=== PATIENT | female | born 1935 | race Two or more races ===

== ENCOUNTER 2021-08-06 18:35 | Inpatient (IN) | payer MEDICARE, OTHER ==
[~2021-08-06] VITALS: Ht 152.4 cm; Wt 74.8 kg
[2021-08-06 18:35] VITALS: BP 118/52
[2021-08-06 20:00] VITALS: BP 118/52
[2021-08-06] MEDS ORDERED: IPRATROPIUM/ALBUTEROL 0.5-3(2.5)MG/3ML NEB HHN PRN (20:45)
[2021-08-06] MEDS ORDERED: NON FORMULARY PATIENT HOME MED XX SCH (21:00)
[2021-08-06] MEDS: ATORVASTATIN CALCIUM 20MG TABLET PO SCH (22:24)
[2021-08-06] MEDS: CLOTRIMAZOLE/BETAMETHASONE 1/0.05% CREAM 15GM TOP SCH (23:39)
[2021-08-07 06:31] LABS: CHLORIDE 113 mEq/L (98-107)
[2021-08-07 06:32] LABS: BASOPHILS % 0.3 % (0.0-2.0); HEMATOCRIT. 29.1 % (36.0-48.0); HEMOGLOBIN. 9.7 g/dL (12.0-16.0); LYMPHOCYTES % 16.3 % (20.0-50.0); MEAN CORPUSCULAR HEMOGLOBIN 31.1 pg (28.0-32.0); MEAN CORPUSCULAR VOLUME 93.7 fL (81.0-99.0); MEAN PLATELET VOLUME 8.6 fl (7.4-10.4); MONOCYTES % 12.2 % (2.0-8.0); NEUTROPHILS % 67.2 % (40.0-76.0); PLATELET 162 x1000/uL (130-400); RED CELL DISTRIBUTION WIDTH 14.7 % (11.6-14.6)
[2021-08-07 06:40] LABS: LDL CHOLESTEROL 47 mg/dL (5-100)
[2021-08-07 06:41] LABS: HDL CHOLESTEROL 33 mg/dL (40-59)
[2021-08-07 08:00] VITALS: BP 99/50
[2021-08-07] MEDS: LOSARTAN POTASSIUM 50 MG TABLET PO SCH ×3 (09:00→17:00)
[2021-08-07] MEDS ORDERED: APIXABAN 5 MG TABLET PO SCH (09:00)
[2021-08-07] MEDS ORDERED: ASPIRIN 81MG TABLET PO SCH (09:00)
[2021-08-07] MEDS: LIDOCAINE 5% PATCH TOP SCH (10:25)
[2021-08-07] MEDS: DOXYCYCLINE HYCLATE 100MG CAPSULE PO SCH ×2 (10:25→18:45)
[2021-08-07] MEDS: FUROSEMIDE 40MG TABLET PO SCH (10:25)
[2021-08-07] MEDS: CLOTRIMAZOLE/BETAMETHASONE 1/0.05% CREAM 15GM TOP SCH ×2 (12:20→20:57)
[2021-08-07] MEDS: METHYLPREDNISOLONE 4MG TABLET PO SCH (12:20)
[2021-08-07] MEDS: APIXABAN 2.5 MG TABLET PO SCH (18:45)
[2021-08-07 20:00] VITALS: BP 99/60
[2021-08-07] MEDS: ATORVASTATIN CALCIUM 20MG TABLET PO SCH (20:57)
[2021-08-08 08:00] VITALS: BP 113/55
[2021-08-08] MEDS: DOXYCYCLINE HYCLATE 100MG CAPSULE PO SCH ×2 (09:06→17:28)
[2021-08-08] MEDS: APIXABAN 2.5 MG TABLET PO SCH ×2 (09:06→17:30)
[2021-08-08] MEDS: METHYLPREDNISOLONE 4MG TABLET PO SCH (09:06)
[2021-08-08] MEDS: FUROSEMIDE 40MG TABLET PO SCH (09:06)
[2021-08-08] MEDS: LOSARTAN POTASSIUM 50 MG TABLET PO SCH ×2 (09:07→17:00)
[2021-08-08] MEDS: LIDOCAINE 5% PATCH TOP SCH (09:07)
[2021-08-08] MEDS: TRAMADOL 50MG TABLET PO PRN ×2 (09:07→23:08)
[2021-08-08] MEDS: CLOTRIMAZOLE/BETAMETHASONE 1/0.05% CREAM 15GM TOP SCH ×2 (09:10→22:39)
[2021-08-08 11:49] LABS: CLARITY URINE TURBID (CLEAR); COLOR URINE DARK YELLOW (YELLOW); KETONES URINE NEGATIVE (NEGATIVE); LEUKOCYTE ESTERASE URINE 3+ (NEGATIVE); NITRITE URINE NEGATIVE (NEGATIVE); OCCULT BLOOD URINE 2+ (NEGATIVE); PROTEIN URINE 2+ (NEGATIVE); SPECIFIC GRAVITY URINE 1.011 (1.005-1.030)
[2021-08-08 13:01] LABS: BASOPHILS % 0.4 % (0.0-2.0); EOSINOPHILS % 2.8 % (0.0-5.0); HEMATOCRIT. 34.5 % (36.0-48.0); HEMOGLOBIN. 11.1 g/dL (12.0-16.0); LYMPHOCYTES % 10.5 % (20.0-50.0); MEAN CORPUSCULAR HEMOGLOBIN 30.3 pg (28.0-32.0); MEAN PLATELET VOLUME 8.4 fl (7.4-10.4); NEUTROPHILS % 77.3 % (40.0-76.0); PLATELET 248 x1000/uL (130-400); RED BLOOD CELL COUNT 3.67 mill/uL (4.2-5.4); RED CELL DISTRIBUTION WIDTH 14.8 % (11.6-14.6)
[2021-08-08 13:09] LABS: CHLORIDE 110 mEq/L (98-107)
[2021-08-08 13:18] LABS: CREATINE KINASE 45 IU/L (26-192)
[2021-08-08 13:19] LABS: TOTAL IRON BINDING CAPACITY 210 ug/dL (250-450)
[2021-08-08 14:23] LABS: FOLIC ACID (FOLATE) SERUM 5.5 ng/mL (>5.38)
[2021-08-08] MEDS ORDERED: LEVOFLOXACIN 500MG TABLET PO NR (15:25)
[2021-08-08] MEDS ORDERED: CYANOCOBALAMIN 1000MCG/ML VIAL IM NR (15:30)
[2021-08-08 20:00] VITALS: BP 114/60
[2021-08-08] MEDS ORDERED: POTASSIUM CHLORIDE 20MEQ TABLET SR PO NR (20:30)
[2021-08-08] MEDS: ATORVASTATIN CALCIUM 20MG TABLET PO SCH (21:01)
[2021-08-09 07:01] LABS: BASOPHILS % 0.3 % (0.0-2.0); HEMOGLOBIN. 10.2 g/dL (12.0-16.0); LYMPHOCYTES % 18.8 % (20.0-50.0); MEAN CORPUSCULAR HEMOGLOBIN 30.3 pg (28.0-32.0); MEAN CORPUSCULAR VOLUME 94.8 fL (81.0-99.0); MEAN PLATELET VOLUME 8.3 fl (7.4-10.4); MONOCYTES % 11.5 % (2.0-8.0); NEUTROPHILS % 66.4 % (40.0-76.0); PLATELET 211 x1000/uL (130-400); RED BLOOD CELL COUNT 3.37 mill/uL (4.2-5.4); RED CELL DISTRIBUTION WIDTH 15.1 % (11.6-14.6)
[2021-08-09] MEDS ORDERED: NALOXONE HCL 0.4MG/ML VIAL IV PRN ×2 (07:15→13:15)
[2021-08-09 07:58] VITALS: BP 104/46
[2021-08-09] MEDS: METHYLPREDNISOLONE 4MG TABLET PO SCH (08:47)
[2021-08-09] MEDS: DOXYCYCLINE HYCLATE 100MG CAPSULE PO SCH ×2 (08:47→18:23)
[2021-08-09] MEDS: APIXABAN 2.5 MG TABLET PO SCH ×2 (08:48→18:23)
[2021-08-09] MEDS: TRAMADOL 50MG TABLET PO PRN ×2 (08:48→18:23)
[2021-08-09] MEDS: FUROSEMIDE 40MG TABLET PO SCH (08:48)
[2021-08-09] MEDS: CLOTRIMAZOLE/BETAMETHASONE 1/0.05% CREAM 15GM TOP SCH ×2 (09:00→20:22)
[2021-08-09] MEDS: LOSARTAN POTASSIUM 50 MG TABLET PO SCH (09:00)
[2021-08-09] MEDS: LIDOCAINE 5% PATCH TOP SCH (09:00)
[2021-08-09] MEDS ORDERED: CYANOCOBALAMIN 1000MCG/ML VIAL IM NR (14:45)
[2021-08-09] MEDS ORDERED: CLOT15CR5 TP (19:47)
[2021-08-09] MEDS ORDERED: APIX2.5T MT (19:55)
[2021-08-09] MEDS ORDERED: ATOR20TA65 MT (19:55)
[2021-08-09 20:00] VITALS: BP 106/46
[2021-08-09] MEDS: ATORVASTATIN CALCIUM 20MG TABLET PO SCH (20:22)
[2021-08-10 08:27] VITALS: BP 101/48
[2021-08-10] MEDS: CLOTRIMAZOLE/BETAMETHASONE 1/0.05% CREAM 15GM TOP SCH ×2 (09:00→20:30)
[2021-08-10] MEDS: DOXYCYCLINE HYCLATE 100MG CAPSULE PO SCH ×2 (09:31→18:08)
[2021-08-10] MEDS: FUROSEMIDE 40MG TABLET PO SCH (09:31)
[2021-08-10] MEDS: APIXABAN 2.5 MG TABLET PO SCH ×2 (09:31→18:08)
[2021-08-10] MEDS: METHYLPREDNISOLONE 4MG TABLET PO SCH (09:31)
[2021-08-10] MEDS: LIDOCAINE 5% PATCH TOP SCH (09:32)
[2021-08-10] MEDS: TRAMADOL 50MG TABLET PO PRN ×2 (14:22→20:18)
[2021-08-10] MEDS: LEVOFLOXACIN 250MG TABLET PO SCH (14:22)
[2021-08-10 20:00] VITALS: BP 98/47
[2021-08-10] MEDS: ATORVASTATIN CALCIUM 20MG TABLET PO SCH (20:18)
[2021-08-11 06:22] LABS: BASOPHILS % 0.3 % (0.0-2.0); EOSINOPHILS % 0.7 % (0.0-5.0); HEMATOCRIT. 31.2 % (36.0-48.0); HEMOGLOBIN. 10.4 g/dL (12.0-16.0); LYMPHOCYTES % 16.9 % (20.0-50.0); MEAN CORPUSCULAR HEMOGLOBIN 31.2 pg (28.0-32.0); MEAN CORPUSCULAR VOLUME 93.3 fL (81.0-99.0); MEAN PLATELET VOLUME 8.5 fl (7.4-10.4); MONOCYTES % 13.2 % (2.0-8.0); NEUTROPHILS % 68.9 % (40.0-76.0); PLATELET 213 x1000/uL (130-400); RED BLOOD CELL COUNT 3.34 mill/uL (4.2-5.4); RED CELL DISTRIBUTION WIDTH 14.5 % (11.6-14.6)
[2021-08-11] MEDS: TRAMADOL 50MG TABLET PO PRN ×2 (07:15→17:21)
[2021-08-11] MEDS: FUROSEMIDE 40MG TABLET PO SCH (08:23)
[2021-08-11] MEDS: APIXABAN 2.5 MG TABLET PO SCH ×2 (08:24→17:07)
[2021-08-11] MEDS: METHYLPREDNISOLONE 4MG TABLET PO SCH (08:24)
[2021-08-11] MEDS: DOXYCYCLINE HYCLATE 100MG CAPSULE PO SCH ×2 (08:24→17:07)
[2021-08-11] MEDS: LIDOCAINE 5% PATCH TOP SCH (08:25)
[2021-08-11 08:30] VITALS: BP 100/51
[2021-08-11] MEDS: CLOTRIMAZOLE/BETAMETHASONE 1/0.05% CREAM 15GM TOP SCH ×2 (08:36→20:50)
[2021-08-11 20:00] VITALS: BP 109/49
[2021-08-11] MEDS: ATORVASTATIN CALCIUM 20MG TABLET PO SCH (20:50)
[2021-08-12 08:00] VITALS: BP 110/50
[2021-08-12] MEDS: DOXYCYCLINE HYCLATE 100MG CAPSULE PO SCH (09:00)
[2021-08-12] MEDS: CLOTRIMAZOLE/BETAMETHASONE 1/0.05% CREAM 15GM TOP SCH ×2 (11:58→20:20)
[2021-08-12] MEDS: LIDOCAINE 5% PATCH TOP SCH (11:58)
[2021-08-12] MEDS: LEVOFLOXACIN 250MG TABLET PO SCH (11:58)
[2021-08-12] MEDS: APIXABAN 2.5 MG TABLET PO SCH ×2 (12:00→17:35)
[2021-08-12] MEDS: FUROSEMIDE 40MG TABLET PO SCH (12:00)
[2021-08-12] MEDS: METHYLPREDNISOLONE 4MG TABLET PO SCH (12:00)
[2021-08-12 15:06] LABS: 25-HYDROXY VITAMIN D3 27 ng/mL (.)
[2021-08-12] MEDS ORDERED: SODIUM CHLORIDE 0.45% 1,000 ML IV ONE (17:30)
[2021-08-12 20:00] VITALS: BP 136/70
[2021-08-12] MEDS: ATORVASTATIN CALCIUM 20MG TABLET PO SCH (20:20)
[2021-08-13 06:52] LABS: HEMATOCRIT. 34.3 % (36.0-48.0); HEMOGLOBIN. 11.2 g/dL (12.0-16.0); MEAN CORPUSCULAR HEMOGLOBIN 30.3 pg (28.0-32.0); MEAN CORPUSCULAR VOLUME 92.6 fL (81.0-99.0); MEAN PLATELET VOLUME 8.7 fl (7.4-10.4); PLATELET 247 x1000/uL (130-400); RED BLOOD CELL COUNT 3.71 mill/uL (4.2-5.4); RED CELL DISTRIBUTION WIDTH 14.5 % (11.6-14.6)
[2021-08-13] MEDS: TRAMADOL 50MG TABLET PO PRN (07:25)
[2021-08-13 08:00] VITALS: BP 112/65
[2021-08-13] MEDS ORDERED: METHYL SALICYLATE/MENTHOL CREAM 85GM TOP PRN (08:45)
[2021-08-13] MEDS: FUROSEMIDE 40MG TABLET PO SCH (09:54)
[2021-08-13] MEDS: APIXABAN 2.5 MG TABLET PO SCH ×2 (09:54→17:39)
[2021-08-13] MEDS: METHYLPREDNISOLONE 4MG TABLET PO SCH (09:55)
[2021-08-13] MEDS: ERGOCALCIFEROL 50000UNITS CAPSULE PO SCH (09:55)
[2021-08-13] MEDS: CALCIUM CARBONATE/VITAMIN D3 500MG TABLET PO SCH (09:55)
[2021-08-13] MEDS: LIDOCAINE 5% PATCH TOP SCH (09:58)
[2021-08-13] MEDS: CLOTRIMAZOLE/BETAMETHASONE 1/0.05% CREAM 15GM TOP SCH ×2 (09:58→20:58)
[2021-08-13] MEDS ORDERED: POTASSIUM CHLORIDE 20MEQ TABLET SR PO NR ×2 (10:45→13:45)
[2021-08-13 11:34] LABS: PLATELET ESTIMATE NORMAL
[2021-08-13 20:00] VITALS: BP 123/76
[2021-08-13] MEDS: ATORVASTATIN CALCIUM 20MG TABLET PO SCH (20:58)
[2021-08-14 06:18] LABS: HEMOGLOBIN. 11.1 g/dL (12.0-16.0); MEAN CORPUSCULAR HEMOGLOBIN 30.3 pg (28.0-32.0); MEAN CORPUSCULAR VOLUME 93.1 fL (81.0-99.0); MEAN PLATELET VOLUME 8.5 fl (7.4-10.4); PLATELET 245 x1000/uL (130-400); RED BLOOD CELL COUNT 3.66 mill/uL (4.2-5.4); RED CELL DISTRIBUTION WIDTH 14.5 % (11.6-14.6)
[2021-08-14 08:00] VITALS: BP 122/63
[2021-08-14 08:45] LABS: PLATELET ESTIMATE NORMAL
[2021-08-14] MEDS: APIXABAN 2.5 MG TABLET PO SCH ×2 (09:04→17:29)
[2021-08-14] MEDS: METHYLPREDNISOLONE 4MG TABLET PO SCH (09:04)
[2021-08-14] MEDS: CALCIUM CARBONATE/VITAMIN D3 500MG TABLET PO SCH (09:04)
[2021-08-14] MEDS: CLOTRIMAZOLE/BETAMETHASONE 1/0.05% CREAM 15GM TOP SCH ×2 (09:05→21:06)
[2021-08-14] MEDS: LIDOCAINE 5% PATCH TOP SCH (09:05)
[2021-08-14 20:00] VITALS: BP 119/57
[2021-08-14] MEDS: ATORVASTATIN CALCIUM 20MG TABLET PO SCH (21:05)
[2021-08-14] MEDS: TRAMADOL 50MG TABLET PO PRN (21:06)
[2021-08-15 08:00] VITALS: BP 124/62
[2021-08-15] MEDS: CALCIUM CARBONATE/VITAMIN D3 500MG TABLET PO SCH (09:10)
[2021-08-15] MEDS: METHYLPREDNISOLONE 4MG TABLET PO SCH (09:10)
[2021-08-15] MEDS: APIXABAN 2.5 MG TABLET PO SCH ×2 (09:10→17:17)
[2021-08-15] MEDS: LIDOCAINE 5% PATCH TOP SCH (09:25)
[2021-08-15] MEDS: CLOTRIMAZOLE/BETAMETHASONE 1/0.05% CREAM 15GM TOP SCH ×2 (14:47→14:56)
[2021-08-15] MEDS: TRAMADOL 50MG TABLET PO PRN (15:36)
[2021-08-15 20:00] VITALS: BP 118/55
[2021-08-15] MEDS: ATORVASTATIN CALCIUM 20MG TABLET PO SCH (20:25)
[2021-08-16] MEDS: TRAMADOL 50MG TABLET PO PRN (05:36)
[2021-08-16 08:13] VITALS: BP 107/75
[2021-08-16] MEDS: CALCIUM CARBONATE/VITAMIN D3 500MG TABLET PO SCH (08:52)
[2021-08-16] MEDS: APIXABAN 2.5 MG TABLET PO SCH ×2 (08:52→17:27)
[2021-08-16] MEDS: LIDOCAINE 5% PATCH TOP SCH (08:53)
[2021-08-16] MEDS: CLOTRIMAZOLE/BETAMETHASONE 1/0.05% CREAM 15GM TOP SCH ×2 (08:57→22:23)
[2021-08-16] MEDS ORDERED: METHYLPREDNISOLONE 4MG TABLET PO SCH (09:00)
[2021-08-16 20:00] VITALS: BP 105/70
[2021-08-16] MEDS: ATORVASTATIN CALCIUM 20MG TABLET PO SCH (22:23)
[2021-08-17 07:19] LABS: BASOPHILS % 0.3 % (0.0-2.0); EOSINOPHILS % 0.5 % (0.0-5.0); HEMATOCRIT. 35.1 % (36.0-48.0); HEMOGLOBIN. 11.5 g/dL (12.0-16.0); LYMPHOCYTES % 13.9 % (20.0-50.0); MEAN CORPUSCULAR HEMOGLOBIN 30.9 pg (28.0-32.0); MEAN CORPUSCULAR VOLUME 94.1 fL (81.0-99.0); MONOCYTES % 11.3 % (2.0-8.0); PLATELET 171 x1000/uL (130-400); RED BLOOD CELL COUNT 3.73 mill/uL (4.2-5.4); RED CELL DISTRIBUTION WIDTH 14.6 % (11.6-14.6)
[2021-08-17 08:18] VITALS: BP 104/58
[2021-08-17] MEDS ORDERED: METHYLPREDNISOLONE 4MG TABLET PO SCH (09:00)
[2021-08-17] MEDS: CLOTRIMAZOLE/BETAMETHASONE 1/0.05% CREAM 15GM TOP SCH ×2 (09:00→20:24)
[2021-08-17] MEDS: LIDOCAINE 5% PATCH TOP SCH (09:00)
[2021-08-17] MEDS: APIXABAN 2.5 MG TABLET PO SCH ×2 (10:11→18:41)
[2021-08-17] MEDS: CALCIUM CARBONATE/VITAMIN D3 500MG TABLET PO SCH (10:11)
[2021-08-17] MEDS: TRAMADOL 50MG TABLET PO PRN (18:41)
[2021-08-17 20:00] VITALS: BP 128/61
[2021-08-17] MEDS: ATORVASTATIN CALCIUM 20MG TABLET PO SCH (20:24)
[2021-08-18] MEDS: TRAMADOL 50MG TABLET PO PRN (05:43)
[2021-08-18 08:00] VITALS: BP 108/57
[2021-08-18] MEDS: CALCIUM CARBONATE/VITAMIN D3 500MG TABLET PO SCH (08:42)
[2021-08-18] MEDS: APIXABAN 2.5 MG TABLET PO SCH ×2 (08:42→17:46)
[2021-08-18] MEDS: LIDOCAINE 5% PATCH TOP SCH (08:43)
[2021-08-18] MEDS: CLOTRIMAZOLE/BETAMETHASONE 1/0.05% CREAM 15GM TOP SCH ×2 (08:46→23:00)
[2021-08-18] MEDS ORDERED: METHYLPREDNISOLONE 4MG TABLET PO SCH (09:00)
[2021-08-18 20:00] VITALS: BP 113/57
[2021-08-18] MEDS: ATORVASTATIN CALCIUM 20MG TABLET PO SCH (23:00)
[2021-08-19 08:00] VITALS: BP 95/44
[2021-08-19] MEDS: CLOTRIMAZOLE/BETAMETHASONE 1/0.05% CREAM 15GM TOP SCH ×2 (08:10→20:27)
[2021-08-19] MEDS: CALCIUM CARBONATE/VITAMIN D3 500MG TABLET PO SCH (08:10)
[2021-08-19] MEDS: APIXABAN 2.5 MG TABLET PO SCH ×2 (08:10→18:01)
[2021-08-19] MEDS: LIDOCAINE 5% PATCH TOP SCH (08:11)
[2021-08-19] MEDS ORDERED: TRAMADOL 50MG TABLET PO PRN (19:00)
[2021-08-19 20:00] VITALS: BP 121/56
[2021-08-19] MEDS: ATORVASTATIN CALCIUM 20MG TABLET PO SCH (20:27)
[2021-08-20 08:20] VITALS: BP 108/57
[2021-08-20] MEDS: CALCIUM CARBONATE/VITAMIN D3 500MG TABLET PO SCH (08:48)
[2021-08-20] MEDS: APIXABAN 2.5 MG TABLET PO SCH (08:48)
[2021-08-20] MEDS: LIDOCAINE 5% PATCH TOP SCH (08:49)
[2021-08-20] MEDS: ERGOCALCIFEROL 50000UNITS CAPSULE PO SCH (08:55)
[2021-08-20] MEDS: CLOTRIMAZOLE/BETAMETHASONE 1/0.05% CREAM 15GM TOP SCH (09:00)
[2021-08-20] MEDS ORDERED: ATOR20TA65 MT (09:18)
[2021-08-20] MEDS ORDERED: CLOT15CR5 TP (09:18)
[2021-08-20] MEDS ORDERED: LIDO700A30 TOP (09:18)
[2021-08-20] MEDS ORDERED: APIX2.5T MT (09:18)
[2021-08-20] MEDS ORDERED: OCD PO (09:18)
[2021-08-20] MEDS ORDERED: BENGAY TOP (09:18)
[2021-08-20 12:30] VITALS: BP 115/78
== END 2021-08-20 13:35 | disposition home health service (06) | DRG 52 ==
PROVIDERS: ADMIT Physical Medicine & Rehabilitation Spinal Cord Injury Medicine; ATTEND Internal Medicine Pulmonary Disease
DX: G93.41 Metabolic encephalopathy (principal); N17.9 Acute kidney failure, unspecified; E43 Unspecified severe protein-calorie malnutrition; I48.92 Unspecified atrial flutter; E87.8 Other disorders of electrolyte and fluid balance, not elsewhere classified; I48.0 Paroxysmal atrial fibrillation; N30.90 Cystitis, unspecified without hematuria; D64.9 Anemia, unspecified; E55.9 Vitamin D deficiency, unspecified; F32.A Depression, unspecified; G82.20 Paraplegia, unspecified; G89.29 Other chronic pain; K80.20 Calculus of gallbladder without cholecystitis without obstruction; M48.061 Spinal stenosis, lumbar region without neurogenic claudication; N18.4 Chronic kidney disease, stage 4 (severe); R79.1 Abnormal coagulation profile; E87.6 Hypokalemia; M47.816 Spondylosis without myelopathy or radiculopathy, lumbar region; E66.9 Obesity, unspecified; R53.81 Other malaise; R26.9 Unspecified abnormalities of gait and mobility; G47.33 Obstructive sleep apnea (adult) (pediatric); B96.1 Klebsiella pneumoniae [K. pneumoniae] as the cause of diseases classified elsewhere; M51.36 Other intervertebral disc degeneration, lumbar region; Z79.01 Long term (current) use of anticoagulants; Z82.49 Family history of ischemic heart disease and other diseases of the circulatory system; Z86.73 Personal history of transient ischemic attack (TIA), and cerebral infarction without residual deficits; Z87.440 Personal history of urinary (tract) infections; Z90.710 Acquired absence of both cervix and uterus; Z68.32 Body mass index [BMI] 32.0-32.9, adult
CPT/HCPCS: 36415; 72128; 72131; 72148; 76770; 80048; 80053; 80061; 81003; 82140; 82306; 82550; 82607; 82728; 82746; 83540; 83550; 84134; 84443; 85025; 87077; 87186; 92523; 92610; 93970; 97110; 97112; 97116; 97162; 97166; 97530; 97535; A6261; C1893; J3420; J7509